=== PATIENT | female | born 1945 | race Caucasian/White ===

== ENCOUNTER → 2017-12-24 | Day surgery (SDC) | payer OTHER ==
[2017-12-23 16:50] LABS: BASOPHILS % 0.4 % (0.0-1.0); EOSINOPHILS # (AUTO) 0.3 (0.0-0.4); EOSINOPHILS % 3.5 % (0.0-6.0); HEMATOCRIT 37.5 % (34.2-44.1); HEMOGLOBIN 12.7 g/dL (12.0-16.0); LYMPHOCYTES # (AUTO) 2.1 (1.0-3.2); LYMPHOCYTES % 28.8 % (18.0-39.1); MEAN CORPUSCULAR HEMOGLOBIN 34.2 pg (28-32); MEAN CORPUSCULAR HGB CONC 33.9 g/dL (31-35); MEAN CORPUSCULAR VOLUME 101.1 fL (81-99); MONOCYTES # (AUTO) 0.9 (0.2-0.8); MONOCYTES % 11.9 % (4.4-11.3); NEUTROPHILS % 55.1 % (38.7-80.0); PLATELET COUNT 236 x10e3/uL (140-360); RED BLOOD COUNT 3.71 x10e6/uL (3.6-5.1); RED CELL DISTRIBUTION WIDTH 13.9 % (11.7-14.4)
--- NOTE | 2017-12-23 16:53 | Diagnostic Imaging Report ---
PROCEDURE: Frontal and lateral views of the chest. COMPARISON: Patients [facility], , CHEST 2 VIEWS, 04/04/2015, 15:32. INDICATIONS: PRE OP KIDNEY KIDNEY SURGERY FINDINGS: Lines/tubes: None. Lungs: The lungs are well inflated and clear. There is no evidence of pneumonia or pulmonary edema. Pleura: There is no pleural effusion or pneumothorax. Heart and mediastinum: Cardiac silhouette is unremarkable. Pulmonary vasculature is normal. Bones: No acute bony abnormality. Possible mild pectus excavatum IMPRESSION: 1. No acute cardiopulmonary abnormalities. Matthieu Mora M.D. Dictated by: Matthieu Mora M.D. on 12/23/2017 at 16:58 Electronically approved by: Matthieu Mora M.D. on 12/23/2017 at 16:58
[~2017-12-24] MED LIST: ASPIRIN325 MG PO; ATORVASTATIN CA80 MG PO; BELLADONNA/OPIUM 30 MG SUPP RC ONE; CEFTRIAXONE SOD 1 GM VIAL ONE; CLOPIDOGREL75 MG PO; CO Q-10 PO; COLESTID1 G PO; DEXAMETHASONE SOD PHOS INJ 4 MG/ML VIAL ONE; FENTANYL CITRATE/PF 100MCG/2 ML INJ ONE; FISH OIL PO; GARLIC PO; IOPAMIDOL 300MG/ML 50ML INFUS..BTL IV ONE; LIDOCAINE HCL 2% LOCAL INJ 5 ML SDV VIAL INJ ONE; LISINOPRIL10 MG PO; METOPROLOL TART25 MG PO; MIDAZOLAM HCL 2 MG/2 ML VIAL ONE; OMEGA 3 PO; ONDANSETRON HCL INJ 2 MG/ML VIAL ONE; OXYBUTYNIN CHLO10 MG PO; PROPOFOL IV EMULSION 10 MG/ML 20 ML VIAL ONE; SEVOFLURANE INHAL SOLN 250 ML PEN BTL ONE; ZESTRIL20 MG PO
--- NOTE | 2017-12-24 09:32 | Diagnostic Imaging Report ---
PROCEDURE:X-RAY ABDOMEN - KUB COMPARISON:10/27/2015. INDICATIONS:PRE OPERATIVE CHEST X-RAY FOR KIDNEY STONES FINDINGS: Significant interval reduction in right renal stone burden relative to 10/27/2015 with interval removal of internal ureteral stent. Stable appearance of 3 large calculi measuring between one and 1.3 cm in diameter projecting over the expected region of the right renal pelvis. Additional calcifications projected over the right and left hemipelves, which likely represent atherosclerotic vascular calcifications and pelvic phleboliths. No suspicious calcifications project over the left renal shadow. Bowel gas pattern is nonobstructive. Regional skeletal structures are intact with multilevel degenerative disc changes of the lumbar spine. CONCLUSION: Marked reduction in right renal stone burden relative to 10/27/2015. 3 large calculi remain projecting over the right renal pelvis. Dictated by: Horacio Nguyen M.D. on 12/24/2017 at 9:01 Electronically approved by: Horacio Nguyen M.D. on 12/24/2017 at 9:01
--- NOTE | 2018-02-05 00:57 | Operative Report ---
DATE OF PROCEDURE: December 24, 2017 PREOPERATIVE DIAGNOSES: 1. Urinary tract infections. 2. Nephrolithiasis. 3. Atrophic vaginitis. 4. Mild cystocele. POSTOPERATIVE DIAGNOSES: 1. Urinary tract infections. 2. Nephrolithiasis. 3. Atrophic vaginitis. 4. Mild cystocele. OPERATIONS PERFORMED: 1. Cystourethroscopy with bilateral ureteral catheterization and retrograde ureteropyelography (separate procedure performed for the urinary tract infections). 2. Interpretation of retrograde ureteropyelography. 3. Supervision of fluoroscopy, no radiologist present. 4. Pelvic examination under anesthesia. ANESTHESIA: General. COMPLICATIONS: None. CLINICAL SUMMARY: Mary Blanco is a 72-year-old woman with history of urolithiasis. The patient has undergone multiple stone procedures in the past. On KUB, she was found to have nephrolithiasis and according to the KUB report, the stones were actually growing. Patient is brought to the operating room for lithotripsy. She is aware of the risks of bleeding, infection, injury to adjacent structures, need for additional procedures, and elected to proceed. OPERATIVE PROCEDURE IN DETAIL: Informed consent was verified. Mary Blanco was properly identified, taken to the operating room, and placed on lithotripsy table, and anesthesia was uneventfully begun. The patient's right-sided stones were evaluated. We attempted to localize them and they appeared to be too anterior. These were actually the stones that were read on KUB were actually gallstones. Nevertheless, we decided to evaluate the patient's collecting system. The cystoscope was inserted into the patient's bladder following placing the patient in the dorsal lithotomy position and preparing and draping as usual. Panendoscopy of the urinary bladder revealed sand within the urinary bladder. There were no suspicious lesions. Both ureteral orifices were identified in normal anatomical position, was somewhat patulous. A ureteral catheter was used to cannulate each ureter, and retrograde ureteral pyelograms were performed. Interpretation of retrograde ureteropyelography: Contrast was instilled in retrograde fashion bilaterally. There were no obvious stones noted in the upper tract. There was fullness of the right-sided collecting system all the way to the bladder, but there was no obstruction. Unobstructed drainage observed fluoroscopically bilaterally and there were no stones or filling defects that required lithotripsy. The patient's right-sided fullness may be attributed to the passage of the stone. The patient's bladder was then drained. Cystoscope was withdrawn. Pelvic examination under anesthesia revealed atrophic vaginitis with a mild cystocele. No abnormal palpable pelvic masses could be appreciated. There were no suspicious mucosal lesions. Explicit postoperative instructions were given. Will follow the patient up in the office. Job#: [id number]
== END | disposition home or self-care (01) ==
LOC: OR 07:50
PROVIDERS: ATTEND Urology
DX: N20.0 Calculus of kidney (principal); N39.0 Urinary tract infection, site not specified; N81.10 Cystocele, unspecified; N95.2 Postmenopausal atrophic vaginitis; K80.80 Other cholelithiasis without obstruction; I25.10 Atherosclerotic heart disease of native coronary artery without angina pectoris; I10 Essential (primary) hypertension; I25.2 Old myocardial infarction; M19.90 Unspecified osteoarthritis, unspecified site; Z01.812 Encounter for preprocedural laboratory examination; Z01.818 Encounter for other preprocedural examination; Z79.02 Long term (current) use of antithrombotics/antiplatelets; Z79.82 Long term (current) use of aspirin; Z95.5 Presence of coronary angioplasty implant and graft; Z87.891 Personal history of nicotine dependence
CPT/HCPCS: 36415; 52005; 71046; 74018; 85025; J0696; J1100; J2001; J2250; J2405; Q9967

== ENCOUNTER → 2021-07-27 | Day surgery (SDC) | payer MEDICARE, OTHER ==
[~2021-07-27] MED LIST changes: +ALENDRONATE SOD70 MG; +CEFTRIAXONE 1 GM VIAL ONE; -CEFTRIAXONE SOD 1 GM VIAL ONE; +DEXAMETHASONE SOD PHOS INJ 4 MG/ML SDV ONE; -DEXAMETHASONE SOD PHOS INJ 4 MG/ML VIAL ONE; -ONDANSETRON HCL INJ 2 MG/ML VIAL ONE; +ONDANSETRON HCL INJ 2MG/ML 2ML 2 MG/ML VIAL ONE; +POVIDONE IODINE 0.05% 0.05 % ML PO ONE; +QUESTRAN PACKET4 GM PO; +SODIUM CHLORIDE 0.9% 50ML 50 ML ONE
[2021-07-27 08:29] LABS: BASOPHILS % 0.1 % (0.0-1.0); EOSINOPHILS % 0.1 % (0.0-6.0); HEMATOCRIT 36.5 % (34.2-44.1); LYMPHOCYTES # (AUTO) 0.9 (1.0-3.2); MEAN CORPUSCULAR HEMOGLOBIN 32.4 pg (28-32); MEAN CORPUSCULAR HGB CONC 32.9 g/dL (31-35); MEAN CORPUSCULAR VOLUME 98.6 fL (81-99); MONOCYTES # (AUTO) 1.2 (0.2-0.8); MONOCYTES % 11.7 % (4.4-11.3); NEUTROPHILS # (AUTO) 7.7 (2.1-6.9); NEUTROPHILS % 78.7 % (38.7-80.0); PLATELET COUNT 198 x10e3/uL (140-360); RED CELL DISTRIBUTION WIDTH 12.3 % (11.7-14.4)
[2021-07-27 09:01] LABS: ALBUMIN 2.9 g/dL (3.5-5.0); ALBUMIN/GLOBULIN RATIO 0.7 (0.8-2.0); ANION GAP 16.4 mmol/L (8-16); CALCIUM 9.7 mg/dL (8.4-10.2); CREATININE, SERUM 0.84 mg/dL (0.57-1.11); POTASSIUM 3.4 mmol/L (3.5-5.1)
[2021-07-27 11:00] VITALS: BP 125/66
== END | disposition home or self-care (01) ==
LOC: OR 07:19
PROVIDERS: ATTEND Urology
DX: N20.0 Calculus of kidney (principal); N39.0 Urinary tract infection, site not specified; N32.89 Other specified disorders of bladder; N81.6 Rectocele; N95.2 Postmenopausal atrophic vaginitis; M19.90 Unspecified osteoarthritis, unspecified site; I10 Essential (primary) hypertension; E78.5 Hyperlipidemia, unspecified; I25.2 Old myocardial infarction; F17.210 Nicotine dependence, cigarettes, uncomplicated; Z79.02 Long term (current) use of antithrombotics/antiplatelets; Z79.82 Long term (current) use of aspirin; Z79.899 Other long term (current) drug therapy; Z95.5 Presence of coronary angioplasty implant and graft
CPT/HCPCS: 36415; 50590; 71046; 74018; 80053; 83970; 84550; 85025; 93005; C1758; J0696; J1100; J2001; J2250; J2405; J2704; J3010; Q9967

== ENCOUNTER → 2022-01-08 | Outpatient (CLI) | payer MEDICARE ==
[~2022-01-08] MED LIST changes: -BELLADONNA/OPIUM 30 MG SUPP RC ONE; -CEFTRIAXONE 1 GM VIAL ONE; -DEXAMETHASONE SOD PHOS INJ 4 MG/ML SDV ONE; -FENTANYL CITRATE/PF 100MCG/2 ML INJ ONE; -IOPAMIDOL 300MG/ML 50ML INFUS..BTL IV ONE; -LIDOCAINE HCL 2% LOCAL INJ 5 ML SDV VIAL INJ ONE; -MIDAZOLAM HCL 2 MG/2 ML VIAL ONE; -ONDANSETRON HCL INJ 2MG/ML 2ML 2 MG/ML VIAL ONE; -POVIDONE IODINE 0.05% 0.05 % ML PO ONE; -PROPOFOL IV EMULSION 10 MG/ML 20 ML VIAL ONE; -SEVOFLURANE INHAL SOLN 250 ML PEN BTL ONE; -SODIUM CHLORIDE 0.9% 50ML 50 ML ONE
== END ==
LOC: RAD 10:41
PROVIDERS: ATTEND Urology
DX: N20.0 Calculus of kidney (principal)
CPT/HCPCS: 74018